=== PATIENT | male | born 2000 | race Hispanic/Latino ===

== ENCOUNTER → 2022-04-04 | Outpatient (CLI) | payer MEDICAID | END | disposition home or self-care (01) | LOC: RAH 12:28 | PROVIDERS: ATTEND Internal Medicine Critical Care Medicine | DX: M54.2 Cervicalgia (principal); R51.9 Headache, unspecified; R13.12 Dysphagia, oropharyngeal phase; R63.30 Feeding difficulties, unspecified | CPT/HCPCS: 74230; 92611 ==

== ENCOUNTER → 2024-04-24 | Outpatient (CLI) | payer MEDICAID ==
[2024-04-24 13:50] LABS: ABG BASE EXCESS 3.4 mmol/L (-2.0-3.0); ABG HCO3 28.2 mmol/L (21.0-28.0); ABG OXYGEN SATURATION 97.3 % (94.0-98.0); ABG PCO2 43 mmHg (35-48); ABG PH 7.431 (7.350-7.450); PO2, ARTERIAL BG 92.7 mmHg (83.0-108.0); VENT MODE, BG RA (ROOM AIR)
== END | disposition home or self-care (01) ==
LOC: LAB 12:48
PROVIDERS: ATTEND Internal Medicine Critical Care Medicine
DX: G71.09 Other specified muscular dystrophies (principal)
CPT/HCPCS: 36600; 82803

== ENCOUNTER 2025-01-19 05:49 | Day surgery (SDC) | payer MEDICAID ==
[2025-01-15 12:15] LABS: IMMATURE GRANULOCYTE ABSOLUTE 0.04 K/uL (0-1); NUCLEATED RED BLOOD CELLS 0.0 % (0.0-0.19); PLATELET COUNT (AUTO) 367 K/uL (130-400); RED BLOOD CELL COUNT(AUTO) 5.38 MIL/uL (4.50-6.20); RED CELL DISTRIBUTION WIDTH 13.0 % (11.0-15.5); WHITE BLOOD COUNT (AUTO) 9.0 K/uL (4.8-10.8)
[2025-01-15 12:36] LABS: INR 1.02 (0.85-1.15)
[2025-01-15 12:38] LABS: CREATININE 0.2 mg/dL (0.5-1.3); GLOMERULAR FILTR. RATE CALC 193.0 mL/min (>90); GLUCOSE,RANDOM 109.0 mg/dL (70-105); SODIUM SERUM 135.0 mmol/L (136-145); UREA NITROGEN, BLOOD 10.0 mg/dL (7-18)
[2025-01-15 12:53] VITALS: BP 111/71; PULSE 103; RESP 16; TEMP 97.3
--- NOTE | 2025-01-15 14:22 | NUR ---
REPORTED DB ROBERTS INFORMED MOTHER DID TAPER METOPROLOL 12.5MG BID TO DAILY, NOT HALF BID ON 01/12 AND STOPPED TODAY. OK TO PROCEED
--- NOTE | 2025-01-15 15:21 | EKG ---
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
[~2025-01-19] VITALS: Ht 154.9 cm; Wt 65.8 kg
[~2025-01-19 05:49] MED LIST: DOCU100C33 PO; METO-408 PO; PRED20TA3 PO; SERT-438 PO; VIT D PO; [UNRECOGNIZED DRUG - OTHER] PO; vitamin c PO; zinc PO
[2025-01-19 07:00] VITALS: BP 97/54; PULSE 105; RESP 13; TEMP 98.8
[2025-01-19] MEDS: 0.9%NACL 1000ML 1,000 ML IV SCH (07:20)
[2025-01-19] MEDS ORDERED: HEParin-NS 1,000 UNIT/500 ML 1,000 ML IV ONE (07:47)
[2025-01-19] MEDS ORDERED: LIDOCAINE HCL 400MG/20ML VIAL ONE (07:47)
[2025-01-19] MEDS ORDERED: SODIUM BICARB 50MEQ 50ML VIAL 50 ML ONE (07:47)
[2025-01-19] MEDS ORDERED: MIDAZOLAM HCL 1 MG/ML 2ML VIAL ONE ×3 (08:01→12:02)
[2025-01-19] MEDS ORDERED: ADENOSINE 90MG VIAL IV ONE (09:29)
[2025-01-19] MEDS ORDERED: VERAPAMIL HCL 2.5 MG/ML VIAL ONE (11:42)
[2025-01-19 13:20] VITALS: BP 97/54; PULSE 116; RESP 20; TEMP 98.5
[2025-01-19 13:35] VITALS: BP 103/63; PULSE 113; RESP 19
[2025-01-19 13:50] VITALS: BP 100/60; PULSE 113; RESP 16
--- NOTE | 2025-01-19 13:59 | NUR ---
Right Femoral site clean, dry and intact. No sign of bleeding, bruising or hematoma. Instructed Patient and Family of precautions and expectations until discharge. All voiced understanding. Patient remains ST denies c/o pain or distress. Reported off in full to Valdez STRAUSS
--- NOTE | 2025-01-19 14:25 | NUR ---
BOTH PT AND PARENTS GIVEN VERBAL AND WRITTEN DISCHARGE INSTRUCTIONS. IV REMOVED SITE ASYMPTOMATIC. RIGHT GROIN SOFT NON TENDER
[2025-01-19] MEDS ORDERED: IVAB5TAB PO (15:43)
== END 2025-01-19 14:35 | disposition home or self-care (01) ==
LOC: DAH 05:49
PROVIDERS: ATTEND Internal Medicine Cardiovascular Disease
DX: I45.6 Pre-excitation syndrome (principal); I47.11 Inappropriate sinus tachycardia, so stated; I49.1 Atrial premature depolarization; F41.9 Anxiety disorder, unspecified; F32.A Depression, unspecified; I47.10 Supraventricular tachycardia, unspecified; Z20.822 Contact with and (suspected) exposure to COVID-19; Z79.01 Long term (current) use of anticoagulants; Z98.890 Other specified postprocedural states; Z79.899 Other long term (current) drug therapy
CPT/HCPCS: 80048; 85025; 85610; 85730; 36415; 93005; 93620; 93623; 93613; 99156; 99157 ×6; 85347; C1894 ×5; C1732 ×2; C1760 ×2; C1730 ×2; A4649 ×2; J3010; J3490 ×5; J2720; J1644 ×3; J2250 ×3; J0153; A4215 ×2; A4222; A4221; A4663; A4216; A4606; A4223 ×3